=== PATIENT | female | born 1980 | race Caucasian/White ===

== ENCOUNTER 2019-09-29 03:43 | Emergency (ER) | payer BC ==
[2019-09-29] MEDS ORDERED: BACITRACIN 0.9 GM PACKET TP ONE (03:45)
[2019-09-29] MEDS ORDERED: DIPHTH,PERTUSS(ACELL),TET 0.5 ML DISP.SYRIN IM ONE ×2 (03:45→03:48)
[2019-09-29] MEDS ORDERED: BACITRACIN 15 GM TUBE TOPICAL OINTMENT ONE (03:48)
[2019-09-29 03:51] VITALS: BP 120/73; PULSE 90; TEMP 98.3; BMI 24.0
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
== END 2019-09-29 04:25 | disposition home or self-care (01) ==
LOC: JER 03:43
PROC: 3E0234Z Introduction of Serum, Toxoid and Vaccine into Muscle, Percutaneous Approach (ICD-10-PCS; principal; 2019-09-29)
DX: S81.851A Open bite, right lower leg, initial encounter (principal); S41.152A Open bite of left upper arm, initial encounter; S60.512A Abrasion of left hand, initial encounter; Y04.1XXA Assault by human bite, initial encounter; Y93.89 Activity, other specified; Y92.89 Other specified places as the place of occurrence of the external cause; E03.9 Hypothyroidism, unspecified; F17.210 Nicotine dependence, cigarettes, uncomplicated
CPT/HCPCS: 90715; 99282-25

== ENCOUNTER 2022-07-23 11:56 | Emergency (ER) | payer BC ==
[2022-07-23 12:11] VITALS: BP 120/68; PULSE 88; RESP 19; TEMP 98; BMI 20.5
[2022-07-23 13:12] LABS: PH,URINE 5.5 (5.0-8.0); URINE APPEARANCE CLEAR; URINE BILIRUBIN NEGATIVE (NEGATIVE); URINE COLOR YELLOW; URINE GLUCOSE (UA) NEGATIVE (NEGATIVE); URINE KETONE NEGATIVE (NEGATIVE); URINE LEUK ESTERASE NEGATIVE (NEGATIVE); URINE NITRITE NEGATIVE (NEGATIVE); URINE PROTEIN NEGATIVE (NEGATIVE); URINE UROBILINOGEN 0.2 mg/dL (0.2-1.0)
[2022-07-23 13:17] LABS: HCG,QUALITATIVE URINE Negative
== END 2022-07-23 14:13 | disposition home or self-care (01) ==
LOC: JERFT 11:56
DX: R11.2 Nausea with vomiting, unspecified (principal); R19.7 Diarrhea, unspecified
CPT/HCPCS: 81003; 84703; 87086; 99283-25

== ENCOUNTER 2023-10-11 19:44 | Emergency (ER) | payer BC ==
[2023-10-11 19:49] VITALS: BP 145/91; PULSE 95; RESP 18; TEMP 97.1; BMI 23.1
== END 2023-10-11 22:04 | disposition home or self-care (01) ==
LOC: JERFT 19:44
DX: R09.81 Nasal congestion (principal); J06.9 Acute upper respiratory infection, unspecified; U07.1 COVID-19
CPT/HCPCS: 0241U-QW; 99283-25